=== PATIENT | female | born 1980 | race American Indian/Alaskan Native ===

== ENCOUNTER 2016-12-28 00:14 | Emergency (ER) | payer OTHER ==
[2016-12-28 01:00] VITALS: BP 124/83
[2016-12-28] MEDS ORDERED: TYLENOL PO ONE (02:38)
[2016-12-28 03:03] LABS: Basophils % (Auto) 0.3 % (0.0-1.8); Eosinophils % (Auto) 0.9 % (0.0-4.3); Hematocrit 37.1 % (30.3-42.9); Hemoglobin 12.1 gm/dl (10.1-14.3); Mean Corpuscular HGB Conc 33 % (30-34); Mean Corpuscular Hemoglobin 29 pg (28-32); Mean Corpuscular Volume 89 fl (79-97); Platelet Count 258 K/mm3 (140-440); Red Blood Count 4.18 M/mm3 (3.65-5.03); Red Cell Distribution Width 14.3 % (13.2-15.2)
--- NOTE | 2016-12-29 21:41 | ED Elopement Review ---
ED Pt Elopement review - Results review Lab results: Laboratory Tests 12/28/16 02:48 WBC 7.0 RBC 4.18 Hgb 12.1 Hct 37.1 MCV 89 MCH 29 MCHC 33 RDW 14.3 Plt Count 258 Lymph % (Auto) 9.1 L [place] % (Auto) 11.0 H Eos % (Auto) 0.9 Baso % (Auto) 0.3 Lymph # 0.6 L [place] # 0.8 Eos # 0.1 Baso # 0.0 Seg Neutrophils % 78.7 H Seg Neutrophils # 5.5 - Call Back decision Pt Call Back Decision: Pt to F/U with PMD
== END 2016-12-28 04:47 | disposition left against medical advice (07) ==
LOC: ED 00:14
DX: R07.0 Pain in throat (principal); R50.9 Fever, unspecified; Z88.8 Allergy status to other drugs, medicaments and biological substances; Z53.21 Procedure and treatment not carried out due to patient leaving prior to being seen by health care provider
CPT/HCPCS: 36415; 85025; 87400